=== PATIENT | female | born 1960 | race Caucasian/White ===

== ENCOUNTER 2017-05-16 10:30 | Emergency (ER) | payer OTHER ==
[~2017-05-16] VITALS: Ht 152.4 cm; Wt 54.5 kg
[2017-05-16 10:30] VITALS: BP 160/76
[2017-05-16] MEDS ORDERED: MAXA10TA14 PO (10:49)
[2017-05-16] MEDS ORDERED: CEFD1CAP8 PO (10:49)
[2017-05-16] MEDS ORDERED: IBUP80TA PO (11:10)
[2017-05-16] MEDS ORDERED: ROBA500T PO (11:10)
[2017-05-16] MEDS ORDERED: METHOCARBAMOL 500 MG TAB PO ONE (11:15)
== END 2017-05-16 11:24 | disposition home or self-care (01) ==
LOC: M ED 10:30
DX: S39.012A Strain of muscle, fascia and tendon of lower back, initial encounter (principal); V49.9XXA Car occupant (driver) (passenger) injured in unspecified traffic accident, initial encounter; Y92.89 Other specified places as the place of occurrence of the external cause; Y93.9 Activity, unspecified; Y99.9 Unspecified external cause status; Z79.899 Other long term (current) drug therapy

== ENCOUNTER 2017-05-18 09:51 | Emergency (ER) | payer OTHER ==
[~2017-05-18] VITALS: Ht 152.4 cm; Wt 54.5 kg
[~2017-05-18 09:51] MED LIST: CEFD1CAP8 PO; IBUP80TA PO; MAXA10TA14 PO; ROBA500T PO
[2017-05-18] MEDS ORDERED: KETOROLAC 60 MG/2 ML VIAL (J1885) IM ONE (11:15)
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
[2017-05-18 12:11] VITALS: BP 130/80
[2017-05-18] MEDS ORDERED: VALI5TAB PO (12:25)
[2017-05-18] MEDS ORDERED: NORC1TAB4 PO (12:25)
[2017-05-18] MEDS ORDERED: NORCO, ANEXSIA 5/325MG TABLET (HYDROcodone/ACETAMINOPHEN) PO ONE (12:30)
== END 2017-05-18 12:38 | disposition home or self-care (01) ==
LOC: M ED 09:51
DX: M54.5 Low back pain (principal); R51 Headache; M25.78 Osteophyte, vertebrae; M51.34 Other intervertebral disc degeneration, thoracic region; S22.080A Wedge compression fracture of T11-T12 vertebra, initial encounter for closed fracture; V43.02XD Car driver injured in collision with other type car in nontraffic accident, subsequent encounter; Y92.9 Unspecified place or not applicable; Y93.9 Activity, unspecified; Y99.9 Unspecified external cause status; Z79.899 Other long term (current) drug therapy
CPT/HCPCS: 72052; 72072; 72110; 96372; 99283; J1885; J3360

== ENCOUNTER → 2018-03-29 | Outpatient (REF) | payer OTHER | LOC: M LAB REF 17:02 | DX: J02.9 Acute pharyngitis, unspecified (principal); R50.9 Fever, unspecified ==

== ENCOUNTER → 2018-11-18 | Outpatient (CLI) | payer OTHER ==
[~2018-11-18] MED LIST changes: +NORC1TAB7 PO; +VALI5TAB PO
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
== END ==
LOC: M ADAMS 11:26
PROVIDERS: ATTEND Physician Assistant Medical
DX: M54.6 Pain in thoracic spine (principal); M48.54XD Collapsed vertebra, not elsewhere classified, thoracic region, subsequent encounter for fracture with routine healing

== ENCOUNTER → 2019-04-24 | Outpatient (CLI) | payer OTHER ==
--- NOTE | 2019-04-24 11:46 | REP ---
Clinical: Pain Technique: AP, lateral, bilateral oblique views right foot . Findings: A very subtle nondisplaced fracture involving the head of the fifth metatarsal bone cannot be excluded and should be correlated with physical examination and the possibility of prior trauma. Examination is otherwise unremarkable. Impression: Cannot exclude a very subtle nondisplaced injury involving the head of the fifth metatarsal bone requiring clinical and historical correlation. Electronically Signed by Eddi Xiao MD 04/24/2019 11:38 A
--- NOTE | 2019-04-24 12:22 | REP ---
Clinical: The right lower extremity pain and swelling . Technique: Bello scale and color Doppler evaluation using linear high frequency transducer. Findings: Ultrasound examination of the right lower extremity deep venous structures from the common femoral vein to the popliteal vein demonstrates normal compressibility flow and wave patterns in response to respiration and augmentation. There is no evidence for deep venous thrombosis. Impression: No evidence for deep venous thrombosis. Electronically Signed by Eddi Xiao MD 04/24/2019 12:14 P
== END ==
LOC: M RAD 11:19
PROVIDERS: ATTEND Physician Assistant
DX: M79.671 Pain in right foot (principal); M79.604 Pain in right leg

== ENCOUNTER → 2019-09-08 | Outpatient (REF) | payer OTHER | LOC: M LAB REF 12:34 | PROVIDERS: ATTEND Registered Nurse | DX: N39.0 Urinary tract infection, site not specified (principal) ==

== ENCOUNTER → 2019-09-12 | Outpatient (REF) | payer OTHER | LOC: M LAB REF 17:41 | PROVIDERS: ATTEND Internal Medicine | DX: R30.0 Dysuria (principal) ==

== ENCOUNTER → 2021-10-24 | Outpatient (CLI) | payer OTHER ==
[~2021-10-24] MED LIST changes: -CEFD1CAP8 PO; +CEFD300C41 PO
== END ==
LOC: M PLALAB 09:35
PROVIDERS: ATTEND Internal Medicine
DX: R93.6 Abnormal findings on diagnostic imaging of limbs (principal); M25.552 Pain in left hip

== ENCOUNTER → 2022-03-09 | Outpatient (REF) | payer OTHER ==
[~2022-03-09] MED LIST changes: -MAXA10TA14 PO; +RIZA10TA64 PO
== END ==
LOC: M LAB REF 16:31
PROVIDERS: ATTEND Internal Medicine
DX: R63.4 Abnormal weight loss (principal)

== ENCOUNTER → 2022-03-12 | Outpatient (CLI) | payer OTHER ==
[~2022-03-12] MED LIST changes: +GASTROGRAFIN SOLUTION 30ML (Q9963) As Ordered ONE; +ISOVUE-370 76% 100ML VIAL As Ordered ONE
== END ==
LOC: M RAD 14:40
PROVIDERS: ATTEND Internal Medicine
DX: R10.13 Epigastric pain (principal); R63.4 Abnormal weight loss; K76.0 Fatty (change of) liver, not elsewhere classified; M25.78 Osteophyte, vertebrae; M48.54XA Collapsed vertebra, not elsewhere classified, thoracic region, initial encounter for fracture
CPT/HCPCS: 74178; Q9963; Q9967

== ENCOUNTER → 2023-06-09 | Outpatient (REF) | payer OTHER ==
[~2023-06-09] MED LIST changes: +CEFD1CAP9 PO; -CEFD300C41 PO; -GASTROGRAFIN SOLUTION 30ML (Q9963) As Ordered ONE; -ISOVUE-370 76% 100ML VIAL As Ordered ONE
== END ==
LOC: M LAB REF 16:14
PROVIDERS: ATTEND Internal Medicine
DX: N39.0 Urinary tract infection, site not specified (principal)

== ENCOUNTER → 2024-04-27 | Outpatient (REF) | payer OTHER | LOC: M LAB REF 17:35 | PROVIDERS: ATTEND Internal Medicine | DX: R25.2 Cramp and spasm (principal) ==

== ENCOUNTER → 2024-06-06 | Outpatient (REF) | payer OTHER | LOC: M LAB REF 16:22 | PROVIDERS: ATTEND Internal Medicine | DX: N39.0 Urinary tract infection, site not specified (principal) ==

== ENCOUNTER → 2024-06-08 | Outpatient (CLI) | payer OTHER ==
[~2024-06-08] MED LIST changes: +PROHANCE 279.3MG/ML 15ML VIAL As Ordered ONE
== END ==
LOC: M RAD 12:19
PROVIDERS: ATTEND Internal Medicine
DX: G43.119 Migraine with aura, intractable, without status migrainosus (principal); H54.50 Low vision, one eye, unspecified eye
CPT/HCPCS: 70544; 70553; A9576

== ENCOUNTER → 2025-01-02 | Outpatient (CLI) | payer MEDICARE, OTHER ==
[~2025-01-02] MED LIST changes: -PROHANCE 279.3MG/ML 15ML VIAL As Ordered ONE
== END ==
LOC: M RAD 10:17
PROVIDERS: ATTEND Internal Medicine
DX: Z87.891 Personal history of nicotine dependence (principal)

== ENCOUNTER → 2025-02-02 | Outpatient (CLI) | payer MEDICARE, OTHER | LOC: M WHC 10:47 | PROVIDERS: ATTEND Internal Medicine | DX: Z12.31 Encounter for screening mammogram for malignant neoplasm of breast (principal); M85.852 Other specified disorders of bone density and structure, left thigh; M85.88 Other specified disorders of bone density and structure, other site; M81.0 Age-related osteoporosis without current pathological fracture ==

== ENCOUNTER → 2025-03-27 | Outpatient (CLI) | payer MEDICARE, OTHER | LOC: M CARPUL 13:31 | PROVIDERS: ATTEND Registered Nurse | DX: I47.20 Ventricular tachycardia, unspecified (principal) ==

== ENCOUNTER → 2025-04-18 | Outpatient (CLI) | payer MEDICARE, OTHER | LOC: M CARPUL 09:03 | PROVIDERS: ATTEND Registered Nurse | DX: I47.20 Ventricular tachycardia, unspecified (principal) ==